=== PATIENT | male | born 1960 | race Caucasian/White ===

== ENCOUNTER 2021-05-22 22:38 | Emergency (ER) | payer SELFPAY ==
[~2021-05-22] VITALS: Ht 172.7 cm; Wt 82.0 kg
[2021-05-22 22:45] VITALS: BP 96/68
== END 2021-05-23 06:03 | disposition home or self-care (01) ==
LOC: ER 22:38
DX: F10.10 Alcohol abuse, uncomplicated (principal); F91.8 Other conduct disorders; Y90.9 Presence of alcohol in blood, level not specified; F17.210 Nicotine dependence, cigarettes, uncomplicated; Z99.3 Dependence on wheelchair
CPT/HCPCS: 99283